=== PATIENT | female | born 1970 | race Caucasian/White ===

== ENCOUNTER 2019-02-12 08:39 | Inpatient (IN) | payer BC ==
[~2019-02-12] VITALS: Ht 165.1 cm; Wt 62.3 kg
[~2019-02-12 08:39] MED LIST: ADMELOG SQ; ALPR2TAB PO; AMOX500C2 PO; ESCI10TA PO; ESCI20TA PO; IBUP800T48 PO; LANT3I SC; LIT300 PO; LITH300T5 PO; LYRI100 PO; NOV SC; QUET400T PO
[2019-02-12] MEDS ORDERED: ACETAMINOPHEN 325 MG TAB PO ONE (09:00)
--- NOTE | 2019-02-12 09:02 | ERD ---
ER Documentation Chief Complaint Chief Complaint nauseated, off insulin x 2 days, acucheck"hi" HPI 48-year-old female history of psychiatric disorder and diabetes has been without medication both mental health medication and insulin the past several days. Per patient recently discharged from outside hospital for bad urine infection. Is here because she is try to get her medications and feels like her sugar is very high. Is endorsing nausea, denies vomiting, dysuria, fever, shortness of breath, chest pain or weakness. ROS All systems reviewed and are negative except as per history of present illness. Medications Home Meds Active Scripts Insulin Glargine* (Lantus*) 100 Unit/Ml Soln, 30 UNIT SC BID, #1 VIAL Prov:ZEKE COXIFEANYI DO 01/09/16 Reported Medications Quetiapine Fumarate* (Seroquel*) 400 Mg Tablet, 400 MG PO HS, TAB 01/09/16 Alprazolam* (Xanax*) 2 Mg Tablet, 2 MG PO QHS, TAB 09/12/14 Insulin Aspart* (Novolog Insulin Vial*) 100 U/Ml Vial, 8 UNIT SC BID, VIAL 05/19/14 Insulin Glargine* (Lantus*) 100 Unit/Ml Soln, 25 UNIT SC BID, EA 05/19/14 Allergies Allergies: Coded Allergies: No Known Allergies (Verified Allergy, Mild, 05/19/14) PMhx/Soc History of Surgery: Yes (Removal L fallopian tubes bec. of ectopic ) Anesthesia Reaction: No Hx Neurological Disorder: No Hx Respiratory Disorders: No Hx Cardiac Disorders: No Hx Psychiatric Problems: Yes (Bipolar, Anxiety) Hx Miscellaneous Medical Probl: Yes ( DM Type II) Hx Alcohol Use: No Hx Substance Use: Yes (Marijuana use) Hx Tobacco Use: Yes Physical Exam Vitals Vital Signs Date Temp Pulse Resp B/P (MAP) Pulse Ox O2 O2 Flow FiO2 Time Delivery Rate 02/12/19 98.1 99 18 124/77 99 08:44 (93) Physical Exam Const: No acute distress Head: Atraumatic Eyes: Normal Conjunctiva ENT: Normal External Ears, Nose and Mouth. Neck: Full range of motion. No meningismus. Resp: Clear to auscultation bilaterally Cardio: Regular rate and rhythm, no murmurs Abd: Soft, non tender, non distended. Normal bowel sounds Skin: No petechiae or rashes Back: No midline or flank tenderness Ext: No cyanosis, or edema Neur: Awake and alert Psych: Normal Mood and Affect Result Diagram: 02/12/1992502/12/19925 Results 24 hrs Laboratory Tests Test 02/12/19 08:43 02/12/19 09:00 02/12/19 09:08 02/12/19 09:26 Bedside Glucose > 595 mg/dL > 595 mg/dL Blood Gas Blood venous Specimen Source Arterial Blood 02/12/2019 9:24: Date Drawn 44 AM Arterial Blood VENOUS LINE Gas Puncture Site Moses Test N/A Venous Blood pH 7.248 Venous Blood 33.3 mmHG pCO2 (Temp Corrected) Venous Blood pO2 35.3 mmHG (Temp Corrected) Venous Blood 14.2 mmol/L HCO3 Venous Blood 64.8 mmHG Oxygen Saturation Venous Blood -11.9 mmol/L Base Excess Venous Blood 13.5 g/dl Total Hemoglobin Venous Blood 62.5 % Oxyhemoglobin Venous Blood 0.2 % Methemoglobin Carboxyhemoglobi 3.3 % n Blood Gas 37.0 C Temperature Blood Gas ROOM AIR Modality FiO2 21.0 % Blood Gas DR. LIU Critical Value Read Back Blood Gas Maria Notified Whom Blood Gas 02/12/2019 9:33: Notified Time 34 AM White Blood 7.2 10^3/ul Count Red Blood Count 4.05 10^6/ul Hemoglobin 12.5 g/dl Hematocrit 39.0 % Mean Corpuscular 96.3 fl Volume Mean Corpuscular 30.9 pg Hemoglobin Mean Corpuscular 32.1 g/dl Hemoglobin Karina nt Red Cell 12.4 % Distribution Width Platelet Count 268 10^3/UL Mean Platelet 10.5 fl Volume Immature 0.400 % Granulocytes % Neutrophils % 72.2 % Lymphocytes % 22.1 % Monocytes % 3.9 % Eosinophils % 0.7 % Basophils % 0.7 % Nucleated Red 0.0 /100WBC Blood Cells % Immature 0.030 10^3/ul Granulocytes # Neutrophils # 5.2 10^3/ul Lymphocytes # 1.6 10^3/ul Monocytes # 0.3 10^3/ul Eosinophils # 0.1 10^3/ul Basophils # 0.1 10^3/ul Nucleated Red 0.0 10^3/ul Blood Cells # Urine Color STRAW Urine Clarity CLEAR Urine pH 6.0 Urine Specific 1.026 Stem Urine Ketones 1+ mg/dL Urine Nitrite NEGATIVE mg/dL Urine Bilirubin NEGATIVE mg/dL Urine NEGATIVE mg/dL Urobilinogen Urine Leukocyte NEGATIVE Magalie/ul Esterase Urine Hemoglobin NEGATIVE mg/dL Urine Glucose 3+ mg/dL Urine Total NEGATIVE mg/dl Protein Sodium Level 126 mmol/L Potassium Level 4.9 mmol/L Chloride Level 92 mmol/L Carbon Dioxide 14 mmol/L Level Anion Gap 20 Blood Urea 33 mg/dl Nitrogen Creatinine 1.01 mg/dl Est Glomerular 58 mL/min Filtrat Rate mL/min Glucose Level 734 mg/dl Calcium Level 9.4 mg/dl Phosphorus Level 4.0 mg/dl Magnesium Level 1.9 mg/dl Current Medications Medications Dose Sig/John Start Time Status Last (Trade) Ordered Route PRN Stop Time Admin Dose Reason Admin Sodium 670 ml @ ONCE ONCE 02/12/19 DC 02/12/19 Chloride 670 mls/hr IV 09:00 09:34 02/12/19 09:59 650 mg ONCE ONCE 02/12/19 DC 02/12/19 Acetaminophen PO 09:00 09:04 (Tylenol 02/12/19 09:02 Tab) Sodium 670 ml @ ONCE ONCE 02/12/19 02/12/19 Chloride 670 mls/hr IV 10:00 09:46 02/12/19 10:59 Lactated 670 ml @ ONCE ONCE 02/12/19 Ringer's 670 mls/hr IV 10:00 02/12/19 10:59 Lorazepam 1 mg ONCE ONCE 02/12/19 DC 02/12/19 (Ativan) PO 10:00 09:57 02/12/19 10:01 Lorazepam 1 mg STK-MED 02/12/19 DC (Ativan) ONCE .ROUTE 09:56 02/12/19 09:57 Procedures/MDM Patient presents with symptoms including weakness. 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 Most likely diagnosis is DKA l ikely precipitated by noncompliance. Will initiate IV fluids, check potassium prior to insulin initiation and admit to ICU. Departure Diagnosis: Primary Impression: DKA (diabetic ketoacidoses) Diabetes mellitus type: other specified (including LAZARO) Diabetes mellitus complication detail: without coma Qualified Codes: E13.10 - Other specified diabetes mellitus with ketoacidosis without coma Condition: TANISHA Rosales MD Feb 12, 2019 09:02
[2019-02-12] MEDS: SOD CHLORIDE 0.9% 670 ML IV ONE ×2 (09:16→09:34)
[2019-02-12] MEDS ORDERED: LORAZEPAM 1 MG TAB ONE (09:56)
[2019-02-12] MEDS ORDERED: LACTATED RINGER'S 670 ML IV ONE (10:00)
[2019-02-12] MEDS ORDERED: SOD CHLORIDE 0.9% 670 ML IV ONE (10:00)
[2019-02-12] MEDS ORDERED: LORAZEPAM 1 MG TAB PO ONE (10:00)
[2019-02-12] MEDS ORDERED: NS + KCL 30 MEQ 1,000 ML IV SCH ×2 (10:08→12:03)
[2019-02-12] MEDS ORDERED: D10/0.45% NACL + KCL 30 MEQ 1,000 ML IV SCH (10:08)
[2019-02-12] MEDS ORDERED: INSULIN REGULAR, HUMAN 100 UNIT in SOD CHLORIDE 0.9% 100 ML IV SCH ×4 (10:30→12:30)
[2019-02-12] MEDS ORDERED: SOD CHLORIDE 0.9% 1,000 ML IV SCH (12:03)
[2019-02-12] MEDS ORDERED: NS + KCL 40 MEQ 1,000 ML IV SCH (12:03)
[2019-02-12] MEDS ORDERED: LIDOCAINE 2% VISC 15 ML CUP PO ONE (12:30)
[2019-02-12] MEDS ORDERED: DEXTROSE 50% 50 ML SYRINGE IV PRN ×2 (12:30)
[2019-02-12] MEDS: ACCU-CHEK XX SCH ×7 (12:30→18:30)
--- NOTE | 2019-02-12 12:39 | HP ---
Date/Time of Note Date/Time of Note DATE: 02/12/19 TIME: 12:39 Assessment/Plan VTE Prophylaxis Pharmacological prophylaxis: LMWH Lines/Catheters IV [facility] ([facility] Saline Lock Assessment/Plan Hospital Course 48-year-old female with known history of type 1 diabetes mellitus, anxiety disorder, and bipolar disorder, who presented to the emergency room with nausea with evidence of underlying DKA and is being admitted to inpatient s etting. 1. Diabetic ketoacidosis. Etiology is secondary to noncompliance with medications. Continue the patient on insulin drip as per protocol. Obtain hemoglobin A1c to evaluate the blood glucose control over the past few weeks. Obtain endocrinology consult. 2. Bipolar disorder. Resume mood stabilizers. 3. Anxiety disorder. Resume benzodiazepines. 4. Hyponatremia. Most probably from underlying hyperglycemia. Corrected sodium 139. Plan: The patient will be admitted to inpatient ICU floor. The patient will be kept n.p.o. except for medications. The patient will be started on DVT proph ylaxis and gastrointestinal prophylaxis. The patient will remain a full code. Activities will be as tolerated. The rest of the patient's management will be based on the clinical course, inputs from consultants, and the results of diagnostic studies. Based on the patient's clinical presentation, she most probably requires at least 2 midnights' stay for further management and evaluation of her clinical presentation. The patient was seen in collaboration with Dr. Grimm. Result Diagram: 02/12/1992502/12/19925 Results 24hrs Laboratory Tests Test 02/12/19 08:43 02/12/19 09:00 02/12/19 09:08 02/12/19 09:26 Bedside Glucose > 595 *H > 595 *H Blood Gas Blood venous Specimen Source Arterial Blood 02/12/2019 9:24:4 Date Drawn 4 AM Arterial Blood VENOUS LINE Gas Puncture Site Moses Test N/A Venous Blood pH 7.248 L Venous Blood pCO2 33.3 L (Temp Corrected) Venous Blood pO2 35.3 H (Temp Corrected) Venous Blood HCO3 14.2 L Venous Blood 64.8 Oxygen Saturation Venous Blood Base -11.9 L Excess Venous Blood 13.5 Total Hemoglobin Venous Blood 62.5 Oxyhemoglobin Venous Blood 0.2 Methemoglobin Carboxyhemoglobin 3.3 Blood Gas 37.0 Temperature Blood Gas ROOM AIR Modality FiO2 21.[address] LIU Critical Value Read Back Blood Gas Vero.Dayna Notified Whom Blood Gas 02/12/2019 9:33:3 Notified Time 4 AM White Blood Count 7.2 Red Blood Count 4.05 L Hemoglobin 12.5 Hematocrit 39.0 Mean Corpuscular 96.3 Volume Mean Corpuscular 30.9 Hemoglobin Mean Corpuscular 32.1 Hemoglobin Concen t Red Cell 12.4 Distribution Width Platelet Count 268 Mean Platelet 10.5 #H Volume Immature 0.400 Granulocytes % Neutrophils % 72.2 Lymphocytes % 22.1 Monocytes % 3.9 Eosinophils % 0.7 Basophils % 0.7 Nucleated Red 0.0 Blood Cells % Immature 0.030 Granulocytes # Neutrophils # 5.2 Lymphocytes # 1.6 Monocytes # 0.3 Eosinophils # 0.1 Basophils # 0.1 Nucleated Red 0.0 Blood Cells # Urine Color STRAW Urine Clarity CLEAR Urine pH 6.0 Urine Specific 1.026 [place] Urine Ketones 1+ H Urine Nitrite NEGATIVE Urine Bilirubin NEGATIVE Urine NEGATIVE Urobilinogen Urine Leukocyte NEGATIVE Esterase Urine Hemoglobin NEGATIVE Urine Glucose 3+ H Urine Total NEGATIVE Protein Sodium Level 126 L Potassium Level 4.9 Chloride Level 92 L Carbon Dioxide 14 L Level Anion Gap 20 H Blood Urea 33 H Nitrogen Creatinine 1.01 H Est Glomerular 58 L Filtrat Rate mL/min Glucose Level 734 *H Calcium Level 9.4 Phosphorus Level 4.0 Magnesium Level 1.9 Test 02/12/19 10:28 02/12/19 12:11 Bedside Glucose > 595 *H 456 *H HPI/ROS Admit Date/Time Admit Date/Time Hx of Present Illness Reason for admission: DKA. Consultants 1. Endocrinology. This is a 48-year-old female with past medical history of type 1 diabetes mellitus, anxiety disorder, and bipolar disorder. The patient came to the emergency room with chief complaint of nausea. The patient did run out her medications including psychiatric medications and insulin for the past few days. The patient denied any abdominal pain. Patient has been complaining of pain in the right lower molar tooth that has been bothering her. The patient was also complaining of nasal congestion that she refers to from "allergies from living in [place]." She denied any fevers or chills. She denied any chest pain, shortness of breath, or cough. She denied any vomiting, diarrhea, or dysuria. In the emergency room, the patient was found to have a random blood glucose of 734. Patient was also found to have low CO2 with a high anion gap showing evidence of underlying DKA. The patient was not in any coma. The patient was started on IV fluids and was started on insulin drip. ROS Constitutional: nausea Eyes: no complaints ENT: congestion, other (Dental pain.) Respiratory: no complaints Cardiovascular: no complaints Gastrointestinal: nausea Genitourinary: no complaints Musculoskeletal: no complaints Skin: no complaints Neurologic: no complaints Endocrine: polyuria Lymphatic: no complaints Psychological: anxiety, depression Immunologic: no complaints PMH/Family/Social Past Medical History 1. Type 1 diabetes mellitus. 2. Bipolar disorder. 3. Substance abuse (nicotine and marijuana). Medications Current Medications Potassium Chloride/Sodium Chloride 1,000 ml @ 0 mls/hr Q0M IV Last administered on 02/12/19at 10:48; Admin Dose 250 MLS/HR; Start 02/12/19 at 10:08 Potassium Chloride/Dextrose/ Sod Cl 1,000 ml @ 0 mls/hr Q0M IV Last administered on 02/12/19at 12:20; Admin Dose 50 MLS/HR; Start 02/12/19 at 10:08 Insulin Human Regular 100 unit/ Sodium Chloride 101 ml @ 6.77 mls/hr ER DKA PROTOCOL IV Last administered on 02/12/19at 10:54; Admin Dose 6.77 MLS/HR; Start 02/12/19 at 10:30 Dextrose (D50w Syringe) 50 ml Q15M PRN IV For BS 50 or less; Start 02/12/19 at 12:30; Status UNV Dextrose (D50w Syringe) 25 ml Q15M PRN IV BS between 50-70; Start 02/12/19 at 12:30; Status UNV Diagnostic Test (Pha) (Accu-Chek) 1 ea Q1H XX ; Start 02/12/19 at 12:30; Status UNV Miscellaneous Information (* Miscellaneous Pharmacy Order) HYPOGLYCEMIA TREATMENT HYPOGLYCEM PROTOCOL PRN XX Hypoglycemia (BS < 70); Start 02/12/19 at 12:30; Status UNV Potassium Chloride/Sodium Chloride 1,000 ml @ 0 mls/hr Q0M IV ; Start 02/12/19 at 12:03; Status UNV Potassium Chloride/Sodium Chloride 1,000 ml @ 0 mls/hr Q0M IV ; Start 02/12/19 at 12:03; Status UNV Sodium Chloride 1,000 ml @ 0 mls/hr Q0M IV ; Start 02/12/19 at 12:03; Status UNV Insulin Human Regular 100 unit/ Sodium Chloride 101 ml @ 6.77 mls/hr DKA PROTOCOL IV ; Start 02/12/19 at 12:30; Status UNV Miscellaneous Information (* Miscellaneous Pharmacy Order) Please discontinue ... ONCE ONCE XX ; Start 02/12/19 at 12:30; Stop 02/12/19 at 12:31; Status UNV Coded Allergies: No Known Allergies (Verified Allergy, Mild, 02/12/19) Past Surgical History Surgery for ectopic . Family History Significant Family History: diabetes Social History The patient verbalized that she lives in [place] with her friend and friend's family. Patient trying to move to [place]. Alcohol Use: none Smoking Status: Current every day smoker Drug Use: marijuana Exam/Review of Systems Vital Signs Vitals Vital Signs Date Temp Pulse Resp B/P (MAP) Pulse Ox O2 O2 Flow FiO2 Time Delivery Rate 02/12/19 98.1 99 18 124/77 99 08:44 (93) Exam Exam General: Adequately build 48 year-old female lying in bed in no apparent distress. HEENT: Normocephalic, atraumatic. Eyes: Anicteric sclerae, conjunctivae clear. ENT: Nasal septum is midline, oral mucosa moist. Poor dentition. Neck supple, no JVD noticed. Respiratory: Bilaterally clear breath sounds. No use of accessory muscles of respiration. No adventitious breath sounds. Cardiovascular: S1, S2 heard. Regular rate and rhythm. Abdomen: Soft, nontender, and nondistended. Bowel sounds positive in all 4 quadrants. Genitourinary: Deferred. Extremities: No cyanosis, no clubbing, no edema. Peripheral pulses palpable. Neurologic: Cranial nerves II through XII grossly intact. The patient is awake, alert, and oriented. Skin: Erythema on the facial skin. YESSI MARTE NP Feb 12, 2019 12:39
[2019-02-12] MEDS ORDERED: LORAZEPAM 2 MG INJ IV PRN (13:00)
--- NOTE | 2019-02-12 13:36 | CONS ---
Assessment/Plan Assessment/Plan Problems: (1) DKA (diabetic ketoacidoses) Status: Acute Comment: Agree with DKA protocol for insulin gtt administration. Qualifiers: Qualified Codes: E13.10 - Other specified diabetes mellitus with ketoacidosis without coma (2) Diabetes mellitus type 1 Status: Chronic Comment: Once patient out of DKA will resume basal bolus insulin regimen. Assessment/Plan (Daily) Thanks you for asking me to participate in this patient's care. Consultation Date/Type/Reason Admit Date/Time Date of Consultation: Feb 12, 2019 Type of Consult Endocrine Reason for Consultation DKA Requesting Provider: YESSI MARTE NP Date/Time of Note DATE: 02/12/19 TIME: 13:25 Hx of Present Illness 48 year old woman with a 10 year history of Type 1 Diabetes Mellitus. This is one of many admissions for DKA. Patient states that she has been injecting her insulin regularly but past few days noticed polyuria. Her usual dose of insulin is Basaglar 20 units BID and Admelog 10 units for meals. The past few days has been increasing Admelog dose because of the increased urination and blood sugars. Constitutional: no complaints Eyes: no complaints ENT: no complaints Respiratory: no complaints Cardiovascular: no complaints Gastrointestinal: nausea Genitourinary: no complaints Musculoskeletal: no complaints Skin: no complaints Neurologic: other Endocrine: polyuria, polydypsia Lymphatic: no complaints Psychological: anxiety Past Medical History Medical History: diabetes, other (pschiatric disorder/anxiety) Home Meds Reported Medications Escitalopram Oxalate* (Lexapro*) 20 Mg Tablet, 20 MG PO DAILY, #30 TAB 02/12/19 Escitalopram Oxalate* (Lexapro*) 10 Mg Tablet, 10 MG PO DAILY, #30 TAB 02/12/19 [place] Carbonate* ([place] Carbonate*) 300 Mg Tablet, 300 MG PO DAILY, TAB 02/12/19 [Admelog] No Conflict Check, 10 UNIT SQ TIDM A 02/12/19 Alprazolam* (Xanax*) 2 Mg Tablet, 2 MG PO BID PRN for ANXIETY, TAB 02/12/19 Discontinued Reported Medications Quetiapine Fumarate* (Seroquel*) 400 Mg Tablet, 400 MG PO HS, TAB 01/09/16 Alprazolam* (Xanax*) 2 Mg Tablet, 2 MG PO QHS, TAB 09/12/14 Insulin Aspart* (Novolog Insulin Vial*) 100 U/Ml Vial, 8 UNIT SC BID, VIAL 05/19/14 Insulin Glargine* (Lantus*) 100 Unit/Ml Soln, 25 UNIT SC BID, EA 05/19/14 Discontinued Scripts Insulin Glargine* (Lantus*) 100 Unit/Ml Soln, 30 UNIT SC BID, #1 VIAL Prov:BAN COX DO 01/09/16 Medications Current Medications Insulin Human Regular 100 unit/ Sodium Chloride 101 ml @ 6.77 mls/hr ER DKA PROTOCOL IV Last administered on 02/12/19at 10:54; Admin Dose 6.77 MLS/HR; Start 02/12/19 at 10:30 Dextrose (D50w Syringe) 50 ml Q15M PRN IV For BS 50 or less; Start 02/12/19 at 12:30 Dextrose (D50w Syringe) 25 ml Q15M PRN IV BS between 50-70; Start 02/12/19 at 12:30 Diagnostic Test (Pha) (Accu-Chek) 1 ea Q1H XX ; Start 02/12/19 at 12:30 Miscellaneous Information (* Miscellaneous Pharmacy Order) HYPOGLYCEMIA TREATMENT HYPOGLYCEM PROTOCOL PRN XX Hypoglycemia (BS < 70); Start 02/12/19 at 12:30 Potassium Chloride/Sodium Chloride 1,000 ml @ 0 mls/hr Q0M IV ; Start 02/12/19 at 12:03 Potassium Chloride/Sodium Chloride 1,000 ml @ 0 mls/hr Q0M IV ; Start 02/12/19 at 12:03 Sodium Chloride 1,000 ml @ 0 mls/hr Q0M IV ; Start 02/12/19 at 12:03 Insulin Human Regular 100 unit/ Sodium Chloride 101 ml @ 6.77 mls/hr DKA PROTOCOL IV ; Start 02/12/19 at 12:30 Escitalopram Oxalate (Lexapro) 20 mg DAILY PO ; Start 02/12/19 at 13:00 Lorazepam (Ativan) 1 mg Q6H PRN IV Anxiety; Start 02/12/19 at 13:00 Quetiapine Fumarate (Seroquel) 200 mg BID PO ; Start 02/12/19 at 13:00 Lidocaine (Xylocaine (Viscous)) 15 ml QID PRN PO Dental pain; Start 02/12/19 at 13:00 Enoxaparin Sodium (Lovenox) 40 mg DAILY SC ; Start 02/13/19 at 09:00 Famotidine (Pepcid) 20 mg BID PO ; Start 02/12/19 at 21:00 Allergies: Coded Allergies: No Known Allergies (Verified Allergy, Mild, 02/12/19) Social History Alcohol Use: none Smoking Status: Current every day smoker Drug Use: marijuana Exam/Review of Systems Exam Vitals Vital Signs Date Temp Pulse Resp B/P (MAP) Pulse Ox O2 O2 Flow FiO2 Time Delivery Rate 02/12/19 98.1 99 18 124/77 99 08:44 (93) Constitutional: alert, oriented Psych: other (mildly agitated) Head: normocephalic Eyes: nl conjunctiva, EOMI, PERRL ENMT: nl lips & teeth (missing upper teeth) Neck: supple Respiratory: clear to auscultation Cardiovascular: regular rate and rhythm Gastrointestinal: soft Musculoskeletal: nl extremities to inspection Extremities: normal pulses, edema (none) Additional Comments Labs reviewed Results Result Diagram: 02/12/1992502/12/19925 Results 24hrs Laboratory Tests Test 02/12/19 08:43 02/12/19 09:00 02/12/19 09:08 02/12/19 09:26 Bedside Glucose > 595 *H > 595 *H Blood Gas Blood venous Specimen Source Arterial Blood 02/12/2019 9:24:4 Date Drawn 4 AM Arterial Blood VENOUS LINE Gas Puncture Site Moses Test N/A Venous Blood pH 7.248 L Venous Blood pCO2 33.3 L (Temp Corrected) Venous Blood pO2 35.3 H (Temp Corrected) Venous Blood HCO3 14.2 L Venous Blood 64.8 Oxygen Saturation Venous Blood Base -11.9 L Excess Venous Blood 13.5 Total Hemoglobin Venous Blood 62.5 Oxyhemoglobin Venous Blood 0.2 Methemoglobin Carboxyhemoglobin 3.3 Blood Gas 37.0 Temperature Blood Gas ROOM AIR Modality FiO2 21.[address] LIU Critical Value Read Back Blood Gas Maria Notified Whom Blood Gas 02/12/2019 9:33:3 Notified Time 4 AM White Blood Count 7.2 Red Blood Count 4.05 L Hemoglobin 12.5 Hematocrit 39.0 Mean Corpuscular 96.3 Volume Mean Corpuscular 30.9 Hemoglobin Mean Corpuscular 32.1 Hemoglobin Concen t Red Cell 12.4 Distribution Width Platelet Count 268 Mean Platelet 10.5 #H Volume Immature 0.400 Granulocytes % Neutrophils % 72.2 Lymphocytes % 22.1 Monocytes % 3.9 Eosinophils % 0.7 Basophils % 0.7 Nucleated Red 0.0 Blood Cells % Immature 0.030 Granulocytes # Neutrophils # 5.2 Lymphocytes # 1.6 Monocytes # 0.3 Eosinophils # 0.1 Basophils # 0.1 Nucleated Red 0.0 Blood Cells # Urine Color STRAW Urine Clarity CLEAR Urine pH 6.0 Urine Specific 1.026 [place] Urine Ketones 1+ H Urine Nitrite NEGATIVE Urine Bilirubin NEGATIVE Urine NEGATIVE Urobilinogen Urine Leukocyte NEGATIVE Esterase Urine Hemoglobin NEGATIVE Urine Glucose 3+ H Urine Total NEGATIVE Protein Sodium Level 126 L Potassium Level 4.9 Chloride Level 92 L Carbon Dioxide 14 L Level Anion Gap 20 H Blood Urea 33 H Nitrogen Creatinine 1.01 H Est Glomerular 58 L Filtrat Rate mL/min Glucose Level 734 *H Hemoglobin A1c 11.6 H Calcium Level 9.4 Phosphorus Level 4.0 Magnesium Level 1.9 Test 02/12/19 10:28 02/12/19 12:11 02/12/19 13:05 Bedside Glucose > 595 *H 456 *H 310 H Medications Medication Current Medications Insulin Human Regular 100 unit/ Sodium Chloride 101 ml @ 6.77 mls/hr ER DKA PROTOCOL IV Last administered on 02/12/19at 10:54; Admin Dose 6.77 MLS/HR; Start 02/12/19 at 10:30 Dextrose (D50w Syringe) 50 ml Q15M PRN IV For BS 50 or less; Start 02/12/19 at 12:30 Dextrose (D50w Syringe) 25 ml Q15M PRN IV BS between 50-70; Start 02/12/19 at 12:30 Diagnostic Test (Pha) (Accu-Chek) 1 ea Q1H XX ; Start 02/12/19 at 12:30 Miscellaneous Information (* Miscellaneous Pharmacy Order) HYPOGLYCEMIA TR EATMENT HYPOGLYCEM PROTOCOL PRN XX Hypoglycemia (BS < 70); Start 02/12/19 at 12:30 Potassium Chloride/Sodium Chloride 1,000 ml @ 0 mls/hr Q0M IV ; Start 02/12/19 at 12:03 Potassium Chloride/Sodium Chloride 1,000 ml @ 0 mls/hr Q0M IV ; Start 02/12/19 at 12:03 Sodium Chloride 1,000 ml @ 0 mls/hr Q0M IV ; Start 02/12/19 at 12:03 Insulin Human Regular 100 unit/ Sodium Chloride 101 ml @ 6.77 mls/hr DKA PROTOCOL IV ; Start 02/12/19 at 12:30 Escitalopram Oxalate (Lexapro) 20 mg DAILY PO ; Start 02/12/19 at 13:00 Lorazepam (Ativan) 1 mg Q6H PRN IV Anxiety; Start 02/12/19 at 13:00 Quetiapine Fumarate (Seroquel) 200 mg BID PO ; Start 02/12/19 at 13:00 Lidocaine (Xylocaine (Viscous)) 15 ml QID PRN PO Dental pain; Start 02/12/19 at 13:00 Enoxaparin Sodium (Lovenox) 40 mg DAILY SC ; Start 02/13/19 at 09:00 Famotidine (Pepcid) 20 mg BID PO ; Start 02/12/19 at 21:00 CHAD GUO MD Feb 12, 2019 13:36
[2019-02-12] MEDS: QUETIAPINE 100 MG TAB PO SCH ×2 (13:45→20:41)
[2019-02-12] MEDS: ESCITALOPRAM 20 MG TAB PO SCH (13:45)
[2019-02-12] MEDS ORDERED: INSULIN GLARGINE [LANTus] (100 UNITS/ML) SYG SC ONE (15:00)
[2019-02-12] MEDS ORDERED: INSULIN GLARGINE [LANTus] (100 UNITS/ML) SYG SC STA (16:12)
[2019-02-12 20:12] VITALS: Ht 165.1 cm; Wt 62.3 kg
[2019-02-12 20:26] VITALS: BP 142/80; PULSE 84; RESP 20
[2019-02-12] MEDS: FAMOTIDINE 20 MG TAB PO SCH (20:28)
[2019-02-12] MEDS: LIDOCAINE 2% VISC 15 ML CUP PO PRN (20:28)
[2019-02-12] MEDS: ALPRAZOLAM 1 MG TAB PO PRN (21:21)
[2019-02-12] MEDS: morphine 2 MG INJ IV PRN (22:16)
[2019-02-12] MEDS: INSULIN ASPART [NOVOLOG] 3 ML PEN SC SCH (22:24)
[2019-02-12] MEDS ORDERED: BENZOCAINE 10% 7 GM GEL MM PRN (22:30)
[2019-02-12 23:47] VITALS: BP 145/83; PULSE 83; RESP 20
[2019-02-13 03:52] VITALS: BP 171/109; PULSE 85; RESP 20
[2019-02-13 04:24] VITALS: BP 132/67; PULSE 78
[2019-02-13 07:58] VITALS: BP 137/70; PULSE 78; RESP 18
[2019-02-13] MEDS ORDERED: INSULIN GLARGINE [LANTus] (100 UNITS/ML) SYG SC SCH (08:00)
[2019-02-13] MEDS: INSULIN ASPART [NOVOLOG] 3 ML PEN SC SCH ×4 (08:05→12:03)
[2019-02-13] MEDS ORDERED: ENOXAPARIN 40 MG/0.4 ML SYG SC SCH (09:00)
[2019-02-13] MEDS: QUETIAPINE 100 MG TAB PO SCH (09:00)
[2019-02-13] MEDS: ESCITALOPRAM 20 MG TAB PO SCH (09:20)
[2019-02-13] MEDS: FAMOTIDINE 20 MG TAB PO SCH (09:20)
--- NOTE | 2019-02-13 10:04 | PN ---
Assessment/Plan Assessment/Plan Hospital Course Result Diagram: 02/12/19 0926 02/12/19 1815 Exam/Review of Systems Exam Vitals Results Results 24hrs Medications Medication YESSI MARTE NP Feb 13, 2019 10:04
[2019-02-13] MEDS: morphine 2 MG INJ IV PRN (10:49)
[2019-02-13] MEDS: ALPRAZOLAM 1 MG TAB PO PRN (11:04)
[2019-02-13 11:46] VITALS: BP 172/102; PULSE 82; RESP 18
[2019-02-13] MEDS: LIDOCAINE 2% VISC 15 ML CUP PO PRN (13:07)
--- NOTE | 2019-02-13 14:28 | DS ---
Date/Time of Note Date/Time of Note DATE: 02/13/19 TIME: 14:28 Discharge Summary Admission/Discharge Info Admit Date/Time Feb 12, 2019 at 12:06 Discharge Date/Time Feb 13, 2019 at 14:00 left AGAINST MEDICAL ADVICE Discharge Diagnosis 1. S/P Diabetic ketoacidosis. 2. Type DM. Hemoglobin A1c 11.6. 3. Bipolar disorder. 4. Anxiety disorder. 5. Dyslipidemia. 6. Nicotine use. 7. Marijuana use. Patient Condition: Guarded Consults 1. Marilyn Hung MD, Endocrinology. Hx of Present Illness Reason for admission: DKA. Consultants 1. Endocrinology. This is a 48-year-old female with past medical history of type 1 diabetes mellitus, anxiety disorder, and bipolar disorder. The patient came to the emergency room with chief complaint of nausea. The patient did run out her medications including psychiatric medications and insulin for the past few days. The patient denied any abdominal pain. Patient has been complaining of pain in the right lower molar tooth that has been bothering her. The patient was also complaining of nasal congestion that she refers to from "allergies from living in [place]." She denied any fevers or chills. She denied any chest pain, shortness of breath, or cough. She denied any vomiting, diarrhea, or dysuria. In the emergency room, the patient was found to have a random blood glucose of 734. Patient was also found to have low CO2 with a high anion gap showing evidence of underlying DKA. The patient was not in any coma. The patient was started on IV fluids and was started on insulin drip. Hospital Course The patient had evidence of underlying DKA. The patient was maintained on a DKA protocol. The patient's insulin drip was discontinued once the patient's acidosis was resolved. The initial plan was to admit the patient to intensive care unit. However, since the patient came out of DKA in the emergency room, the patient was downgraded to go to telemetry floor. The patient's DKA was most probably secondary to noncompliance with medications since that the patient was not taking any insulin for the past few days. The patient's hemoglobin A1c was found to be 11.6. Once the patient came out of DKA, she was started on sliding scale insulin along with pre-meal insulin and basal insulin with fairly well- controlled blood sugars throughout the hospital stay. The patient's chronic problems include bipolar disorder. The patient was maintained on mood stabilizers. She also has underlying anxiety disorder. She was maintained on benzodiazepines for the same. The patient is also a current nicotine user and marijuana user. The patient was advised on cessation. Patient was also noticed to have dyslipidemia with elevated triglycerides, elevated total cholesterol, and suboptimal LDL. During the patient's hospital stay, she was refusing care including blood draws. On 02/13/2019, the patient walked out of the room and wanted to leave the hospital. The patient was informed about the consequences of leaving the hospital AGAINST MEDICAL ADVICE. Nevertheless, the patient left the hospital AGAINST MEDICAL ADVICE. No follow-up should be confirmed since the patient left the hospital AGAINST MEDICAL ADVICE. At this time I would like to thank Dr. Hung for seeing the patient and providing clinical recommendations. The patient was seen in collaboration with Dr. Grimm. Home Meds Reported Medications Pregabalin* (Lyrica*) 100 Mg Capsule, 100 MG PO TID, CAP 02/12/19 Escitalopram Oxalate* (Lexapro*) 20 Mg Tablet, 20 MG PO DAILY, #30 TAB 02/12/19 Escitalopram Oxalate* (Lexapro*) 10 Mg Tablet, 10 MG PO DAILY, #30 TAB 02/12/19 [place] Carbonate* ([place] Carbonate*) 300 Mg Tablet, 300 MG PO DAILY, TAB 02/12/19 [Admelog] No Conflict Check, 10 UNIT SQ TIDM A 02/12/19 Alprazolam* (Xanax*) 2 Mg Tablet, 2 MG PO BID PRN for ANXIETY, TAB 02/12/19 Discontinued Reported Medications Quetiapine Fumarate* (Seroquel*) 400 Mg Tablet, 400 MG PO HS, TAB 01/09/16 Alprazolam* (Xanax*) 2 Mg Tablet, 2 MG PO QHS, TAB 09/12/14 Insulin Aspart* (Novolog Insulin Vial*) 100 U/Ml Vial, 8 UNIT SC BID, VIAL 05/19/14 Insulin Glargine* (Lantus*) 100 Unit/Ml Soln, 25 UNIT SC BID, EA 05/19/14 Discontinued Scripts Insulin Glargine* (Lantus*) 100 Unit/Ml Soln, 30 UNIT SC BID, #1 VIAL Prov:BAN COX DO 01/09/16 Follow-up Plan No follow-up plan could be confirmed since the patient left the hospital AGAINST MEDICAL ADVICE. Primary Care Provider Care Physician No Primary Time spent on discharge: < 30 minutes Pending Labs Laboratory Tests Test 02/12/19 15:14 02/12/19 16:00 02/12/19 16:19 02/12/19 17:03 Bedside 216 141 129 Glucose mg/dL (70-220) mg/dL (70-220) mg/dL (70-220) Blood Gas Blood venous Specimen Source Arterial Blood 02/12/2019 4:37 Date Drawn :45 PM Arterial Blood VENOUS LINE Gas Puncture Site [place] Test N/A Venous Blood 7.336 (7.330-7 pH .430) Venous Blood 31.8 pCO2 mmHG (35-45) (Temp Corrected ) Venous Blood 49.8 pO2 mmHG (25.0-30. (Temp Corrected 0) ) Venous Blood 16.6 HCO3 mmol/L (22.0-2 9.0) Venous Blood 85.6 Oxygen mmHG (55.0-75. Saturation 0) Venous Blood -8.1 Base Excess mmol/L (-5.0-5 .0) Venous Blood 12.2 g/dl Total Hemoglobin Venous Blood 84.8 % Oxyhemoglobin Venous Blood 0.2 % Methemoglobin Carboxyhemoglob 0.7 % in Blood Gas 37.0 C Temperature Blood Gas ROOM AIR Modality FiO2 21.0 % Blood Gas M.D. Notified Whom Blood Gas 02/12/2019 4:46 Notified Time :20 PM Test 02/12/19 18:00 02/12/19 18:15 02/12/19 18:17 02/12/19 22:21 Blood Gas Blood venous Specimen Source Arterial Blood 02/12/2019 6:18: Date Drawn 31 PM Arterial Blood VENOUS LINE Gas Puncture Site Moses Test N/A Venous Blood 7.323 (7.330-7. pH 430) Venous Blood 36.0 pCO2 mmHG (35-45) (Temp Corrected ) Venous Blood 47.7 pO2 mmHG (25.0-30.0 (Temp Corrected ) ) Venous Blood 18.3 HCO3 mmol/L (22.0-29 .0) Venous Blood 84.3 Oxygen mmHG (55.0-75.0 Saturation ) Venous Blood -7.0 Base Excess mmol/L (-5.0-5. 0) Venous Blood 12.3 g/dl Total Hemoglobin Venous Blood 83.6 % Oxyhemoglobin Venous Blood 0.3 % Methemoglobin Carboxyhemoglob 0.5 % in Blood Gas 37.0 C Temperature Blood Gas ROOM AIR Modality FiO2 21.0 % Blood Gas M.D. Notified Whom Blood Gas 02/12/2019 6:26: Notified Time 56 PM Sodium Level 138 mmol/L (135-14 4) Potassium 4.4 Level mmol/L (3.5-5. 1) Chloride Level 115 mmol/L (97-110 ) Carbon Dioxide 21 Level mmol/L (21-31) Anion Gap 2 (5-13) Blood Urea 16 Nitrogen mg/dl (7-20) Creatinine 0.57 mg/dl (0.44-1. 00) Est Glomerular > 60 Filtrat mL/min (>60) Rate mL/min Glucose Level 118 mg/dl (70-220) Calcium Level 8.6 mg/dl (8.4-10. 2) Phosphorus 2.0 Level mg/dl (2.5-4.9 ) Magnesium 1.9 Level mg/dl (1.7-2.5 ) Bedside 138 197 Glucose mg/dL (70-220) mg/dL (70-220) Test 02/13/19 07:46 02/13/19 09:20 02/13/19 09:23 02/13/19 11:58 Bedside 257 174 Glucose mg/dL (70-220) mg/dL (70-220) Phosphorus 2.2 Level mg/dl (2.5-4.9 ) Magnesium 2.0 Level mg/dl (1.7-2.5 ) White Blood 5.2 Count 10^3/ul (4.8-1 0.8) Red Blood 4.09 Count 10^6/ul (4.20- 5.40) Hemoglobin 12.6 g/dl (12.0-16. 0) Hematocrit 38.5 % (37.0-47.0) Mean 94.1 Corpuscular fl (82.0-101.0 Volume ) Mean 30.8 Corpuscular pg (29.0-33.0) Hemoglobin Mean 32.7 Corpuscular g/dl (32.0-37. Hemoglobin Conc 0) ent Red Cell 12.7 Distribution % (11.5-14.5) Width Platelet Count 257 10^3/UL (140-4 15) Mean Platelet 10.1 Volume fl (7.4-10.4) Immature 0.200 Granulocytes % % (0.001-0.429 ) Neutrophils % 54.0 % (39.0-77.0) Lymphocytes % 35.8 % (15.0-51.0) Monocytes % 6.3 % (0.0-11.0) Eosinophils % 2.9 % (0.0-7.0) Basophils % 0.8 % (0.0-2.0) Nucleated Red 0.0 Blood Cells % /100WBC (0.0-0 .0) Immature 0.010 Granulocytes # 10^3/ul (0.0-0 .031) Neutrophils # 2.8 10^3/ul (1.6-7 .5) Lymphocytes # 1.9 10^3/ul (0.8-2 .9) Monocytes # 0.3 10^3/ul (0.3-0 .9) Eosinophils # 0.2 10^3/ul (0.0-0 .5) Basophils # 0.0 10^3/ul (0.0-0 .1) Nucleated Red 0.0 Blood Cells # 10^3/ul (0.0-0 .0) Sodium Level 138 mmol/L (135-14 4) Potassium 4.1 Level mmol/L (3.5-5. 1) Chloride Level 109 mmol/L (97-110 ) Carbon Dioxide 21 Level mmol/L (21-31) Anion Gap 8 (5-13) Blood Urea 10 Nitrogen mg/dl (7-20) Creatinine 0.58 mg/dl (0.44-1. 00) Est Glomerular > 60 Filtrat mL/min (>60) Rate mL/min Glucose Level 183 mg/dl (70-220) Calcium Level 9.3 mg/dl (8.4-10. 2) Total 0.6 Bilirubin mg/dl (0.2-1.3 ) Direct 0.00 Bilirubin mg/dl (0.00-0. 20) Indirect 0.6 Bilirubin mg/dl (0-1.1) Aspartate Amino 39 Transf (AST/SGO IU/L (15-46) T) Alanine 34 Aminotransferas IU/L (13-69) e (ALT/SGPT) Alkaline 85 Phosphatase IU/L (42-121) Total Protein 6.8 g/dl (6.1-8.1) Albumin 4.0 g/dl (3.3-4.9) Globulin 2.80 g/dl (1.3-3.2) Albumin/Globuli 1.42 n Ratio Triglycerides 396 Level mg/dl (0-149) Cholesterol 221 Level mg/dl (100-200 ) LDL 103 mg/dl Cholesterol, Calculated HDL 39 Cholesterol mg/dl (37-92) Cholesterol/HDL 5.6 RATIO Ratio YESSI MARTE NP Feb 13, 2019 14:28
== END 2019-02-13 14:00 | disposition left against medical advice (07) | DRG 638 ==
LOC: E/R 08:39 → 6WM 12:06 → EDBEDREQSVC 18:52 → EDBEDREQ 18:54
PROVIDERS: ADMIT Internal Medicine; ATTEND Internal Medicine
DX: E10.10 Type 1 diabetes mellitus with ketoacidosis without coma (principal); E87.1 Hypo-osmolality and hyponatremia; F31.9 Bipolar disorder, unspecified; F41.9 Anxiety disorder, unspecified; F12.90 Cannabis use, unspecified, uncomplicated; F17.200 Nicotine dependence, unspecified, uncomplicated; Z79.4 Long term (current) use of insulin; Z91.14 Patient's other noncompliance with medication regimen; Z53.21 Procedure and treatment not carried out due to patient leaving prior to being seen by health care provider
CPT/HCPCS: 36415; 80048; 80053; 80061; 81003; 82803; 82962; 83036; 83735; 84100; 85025; 96361; 96374; J1650; J1815; J2060; J2270; J3480; J7030; J7120

== ENCOUNTER 2019-02-13 15:11 | Emergency (ER) | payer BC ==
[~2019-02-13] VITALS: Ht 165.1 cm; Wt 62.7 kg
[~2019-02-13 15:11] MED LIST changes: -LANT3I SC; -NOV SC; -QUET400T PO
[2019-02-13 15:14] VITALS: Ht 165.1 cm; Wt 62.7 kg
[2019-02-13] MEDS ORDERED: SOD CHLORIDE 0.9% 630 ML IV ONE (17:30)
--- NOTE | 2019-02-13 17:55 | ERD ---
ER Documentation Chief Complaint Chief Complaint dental pain was here yesterday dx blake left ama HPI This is a 48-year-old female with a history of bipolar schizophrenia depression who presents to the emergency department complaining of dental pain. The patient has a history of insulin-dependent diabetes mellitus. The patient had been admitted to the hospital yesterday and subsequently left AGAINST MEDICAL ADVICE several hours ago. She stated she left AGAINST MEDICAL ADVICE that she was not given pain medication. She wanted Motrin. She was given acetaminophen in the hospital. Therefore she was upset and stated she left and went home and grabbed a bottle of ibuprofen. She returns that she still complaining of pain over her right lower molar. She states she knows she has a dental abscess but does not have any antibiotics which she is requesting and will follow up with a dentist. She denies any polyuria or polydipsia. She has no fevers or shaking or chills. No shortness of breath. ROS All systems reviewed and are negative except as per history of present illness. Medications Home Meds Active Scripts Ibuprofen* (Motrin*) 800 Mg Tab, 800 MG PO Q6H PRN for PAIN AND OR ELEVATED TEMP, #30 TAB Prov:TD KLEIN MD 02/13/19 Amoxicillin* (Amoxicillin*) 500 Mg Cap, 500 MG PO BID for 10 Days, CAP Prov:TD KLEIN MD 02/13/19 Reported Medications Pregabalin* (Lyrica*) 100 Mg Capsule, 100 MG PO TID, CAP 02/12/19 Escitalopram Oxalate* (Lexapro*) 20 Mg Tablet, 20 MG PO DAILY, #30 TAB 02/12/19 Escitalopram Oxalate* (Lexapro*) 10 Mg Tablet, 10 MG PO DAILY, #30 TAB 02/12/19 [place] Carbonate* ([place] Carbonate*) 300 Mg Tablet, 300 MG PO DAILY, TAB 02/12/19 [Admelog] No Conflict Check, 10 UNIT SQ TIDM A 02/12/19 Alprazolam* (Xanax*) 2 Mg Tablet, 2 MG PO BID PRN for ANXIETY, TAB 02/12/19 Discontinued Reported Medications Quetiapine Fumarate* (Seroquel*) 400 Mg Tablet, 400 MG PO HS, TAB 01/09/16 Alprazolam* (Xanax*) 2 Mg Tablet, 2 MG PO QHS, TAB 09/12/14 Insulin Aspart* (Novolog Insulin Vial*) 100 U/Ml Vial, 8 UNIT SC BID, VIAL 05/19/14 Insulin Glargine* (Lantus*) 100 Unit/Ml Soln, 25 UNIT SC BID, EA 05/19/14 Discontinued Scripts Insulin Glargine* (Lantus*) 100 Unit/Ml Soln, 30 UNIT SC BID, #1 VIAL Prov:BAN COX DO 01/09/16 Allergies Allergies: Coded Allergies: No Known Allergies (Verified Allergy, Mild, 02/12/19) PMhx/Soc History of Surgery: Yes (left fallopian removal) Anesthesia Reaction: No Hx Neurological Disorder: No Hx Respiratory Disorders: No Hx Cardiac Disorders: No Hx Psychiatric Problems: Yes (anxity, depression, ) Hx Miscellaneous Medical Probl: No (multiple [facility] E.R. visits for hyperglycemia) Hx Alcohol Use: No Hx Substance Use: Yes (marijuana (last night)) Hx Tobacco Use: Yes Physical Exam Vitals Vital Signs Date Temp Pulse Resp B/P (MAP) Pulse Ox O2 O2 Flow FiO2 Time Delivery Rate 02/13/19 98.4 83 17 143/78 97 Room Air 18:59 (99) 02/13/19 97.4 89 18 115/67 100 15:14 (83) Physical Exam Constitutional:Well-developed. Well-nourished. HEENT:Normocephalic. Atraumatic.Pupils were equal round reactive to light. Moist mucous membranes.No tonsillar exudates. Very poor oral dentition. Loss of all teeth on the right upper molar and premolar region. Tenderness with percussion of the right lower molar with no exposure of the pulp and significant discoloration with dental carry. Tenderness of the surrounding gingival mucosa of the right lower molar. No submandibular swelling. No trismus. No brawny induration. Neck: No nuchal rigidity. No lymphadenopathy. No posterior cervical spine tenderness or step-offs. Respiratory: Not using accessory muscles of respiration.Lungs were clear to auscultation bilaterally. No rhonchi. No rales. No wheezing. Cardiovascular: Regular rate regular rhythm.No murmurs. No rubs were appreciated.S1, S2 normal. Distal pulses are palpable 2+ bilaterally. GI: Abdomen was soft. Nontender. Non Distended. No pulsatile abdominal masses or bruits. No rebound. No guarding. Bowel sounds were present and normal. Muscle skeletal: Full range of motion of both the upper and lower extremities bilaterally.Normal muscle tone.No assymetrical calf tenderness or swelling. Skin: No petechia, no purpura. No lesions on the palms or the soles of the feet. No maculopapular rash. NEURO: Patient was alert, awake, orientated x3.No facial droop. Gait observed and normal with no ataxia.Speech had regular rate and rhythm. No focal neurological deficits. PSYCH: No suicidal homicidal thoughts or ideations. No auditory tactile visual hallucinations. Result Diagram: 02/13/19 1720 02/13/19 1720 Results 24 hrs Laboratory Tests Test 02/13/19 15:20 02/13/19 17:20 Bedside Glucose 198 mg/dL White Blood Count 8.8 10^3/ul Red Blood Count 3.97 10^6/ul Hemoglobin 12.4 g/dl Hematocrit 37.6 % Mean Corpuscular Volume 94.7 fl Mean Corpuscular Hemoglobin 31.2 pg Mean Corpuscular Hemoglobin Concent 33.0 g/dl Red Cell Distribution Width 12.6 % Platelet Count 247 10^3/UL Mean Platelet Volume 10.1 fl Immature Granulocytes % 0.500 % Neutrophils % 75.3 % Lymphocytes % 17.3 % Monocytes % 5.0 % Eosinophils % 1.1 % Basophils % 0.8 % Nucleated Red Blood Cells % 0.0 /100WBC Immature Granulocytes # 0.040 10^3/ul Neutrophils # 6.6 10^3/ul Lymphocytes # 1.5 10^3/ul Monocytes # 0.4 10^3/ul Eosinophils # 0.1 10^3/ul Basophils # 0.1 10^3/ul Nucleated Red Blood Cells # 0.0 10^3/ul Sodium Level 134 mmol/L Potassium Level 4.4 mmol/L Chloride Level 106 mmol/L Carbon Dioxide Level 18 mmol/L Anion Gap 10 Blood Urea Nitrogen 15 mg/dl Creatinine 0.70 mg/dl Est Glomerular Filtrat Rate mL/min > 60 mL/min Glucose Level 394 mg/dl Calcium Level 9.4 mg/dl Phosphorus Level 3.3 mg/dl Magnesium Level 1.9 mg/dl Total Bilirubin 0.5 mg/dl Direct Bilirubin 0.00 mg/dl Indirect Bilirubin 0.5 mg/dl Aspartate Amino Transf (AST/SGOT) 34 IU/L Alanine Aminotransferase (ALT/SGPT) 32 IU/L Alkaline Phosphatase 98 IU/L Total Protein 6.9 g/dl Albumin 4.1 g/dl Globulin 2.80 g/dl Albumin/Globulin Ratio 1.46 Current Medications Medications Dose Sig/John Start Time Status Last (Trade) Ordered Route PRN Stop Time Admin Dose Reason Admin Sodium 630 ml @ ONCE ONCE 02/13/19 DC Chloride 630 mls/hr IV 17:30 02/13/19 18:29 Amoxicillin 500 mg ONCE ONCE 02/13/19 DC 02/13/19 PO 18:00 18:52 (Amoxicillin) 02/13/19 18:01 Insulin 10 unit ONCE STAT 02/13/19 DC Human SC 18:29 Lispro 02/13/19 18:44 (Humalog) 1 tab ONCE ONCE 02/13/19 DC 02/13/19 Acetaminophen PO 19:00 18:54 / 02/13/19 19:01 Hydrocodone Bitart ([place]dig[place] (5/325)) 1 ea NOTE XX 02/13/19 Miscellaneous 19:00 Information Glucose 15 gm Q15M PRN 02/13/19 (Glutose) PO DECREASED 19:00 GLUCOSE Glucose 22.5 gm Q15M PRN 02/13/19 (Glutose) PO DECREASED 19:00 GLUCOSE Dextrose 25 ml Q15M PRN 02/13/19 (D50w IV DECREASED 19:00 Syringe) GLUCOSE Dextrose 50 ml Q15M PRN 02/13/19 (D50w IV DECREASED 19:00 Syringe) GLUCOSE Glucagon 1 mg Q15M PRN 02/13/19 (Glucagen) IM DECREASED 19:00 GLUCOSE Glucose 15 gm Q15M PRN 02/13/19 (Glutose) BUCCAL 19:00 DECREASED GLUCOSE Procedures/MDM This is a 48-year-old female that had return to the emergency department after she had been admitted to the hospital and treated for diabetic ketoacidosis. I reviewed the patient's ancillary laboratory work and yesterday when the patient arrived her BUN was 33 and creatinine was 1.01. Her blood glucose was elevated and the 700 with an anion gap of 20. The patient serum sodium was 126. The patient was nontoxic in appearance and on today's return visit to the emergency room showed no physical exam findings or concerns for diabetic ketoacidosis. Patient was hyperglycemic without ketosis. She was also given a dose of amoxicillin to treat her dental abscess. No evidence of [place] angina. Repeat ancillary laboratory work was obtained today. The patient had hyperglycemia without ketosis. Blood glucose is 394. There was no anion gap. Patient was given subcutaneous insulin She will be discharged home with a prescription of amoxicillin and stated she will follow-up with the dentist. The patient was discharged home in fair condition. The patient was requesting medication refills of all of her meds. She indicates she cannot remember the doses of her medications. She attempted to text her daughter but was unsuccessful in retrieving the medication dosages. I reviewed the patient's previous records and the patient takes 300 mg of lithium daily 10 mg of Lexapro daily and 2 mg of Xanax as needed twice daily. The patient appeared very upset that her medications had not been filled and that she was not given further analgesic medication which caused her to leave AMA. Verbal de-escalation was unable to calm the patient down. She was not a threat to herself or others. She did receive 1 tab of [place] in the emergency department for analgesia control of her dental caries and abscess. I did refill the nataliya chaparro's medications after reviewing the cures database she states she does not have good outpatient follow-up. She was instructed to return to the emergency department at any time if there was any worsening of their condition. The patient stated they would follow up with their PCP in the next 24-48 hours to initiate a suitable medication regimen under the care of their PCP as well as to allow their PCP to monitor any drug reactions. The patient was discharged home with prescriptions after they gave informed consent to the new medication. They were also fully informed by myself on the adverse effects and adverse drug interactions in order to provide adequate safeguards to prevent possible adverse reactions to medications. Departure Diagnosis: Primary Impression: Dental abscess Additional Impression: Hyperglycemia without ketosis Condition: TD Stock MD Feb 13, 2019 17:55
[2019-02-13] MEDS ORDERED: AMOXICILLIN 500 MG CAP PO ONE (18:00)
[2019-02-13] MEDS ORDERED: INSULIN LISPRO 100 UNIT/ML VIAL SC STA (18:29)
[2019-02-13 18:59] VITALS: BP 143/78; PULSE 83; RESP 17
[2019-02-13] MEDS ORDERED: GLUCAGON 1 MG INJ IM PRN (19:00)
[2019-02-13] MEDS ORDERED: GLUCOSE GEL 15 GRAM TUBE PO PRN ×2 (19:00)
[2019-02-13] MEDS ORDERED: GLUCOSE GEL 15 GRAM TUBE BUCCAL PRN (19:00)
[2019-02-13] MEDS ORDERED: DEXTROSE 50% 50 ML SYRINGE IV PRN ×2 (19:00)
[2019-02-13] MEDS ORDERED: HYDROCODONE/APAP (5/325) TAB PO ONE (19:00)
== END 2019-02-13 20:04 | disposition home or self-care (01) ==
LOC: E/R 15:11
DX: K04.7 Periapical abscess without sinus (principal); E11.65 Type 2 diabetes mellitus with hyperglycemia; Z87.891 Personal history of nicotine dependence
CPT/HCPCS: 36415; 80053; 82962; 83735; 84100; 85025; 93005; 99283; J7030; Z7610